=== PATIENT | male | born 1975 | race Caucasian/White ===

== ENCOUNTER 2018-10-30 21:39 | Emergency (ER) | payer SELFPAY ==
[~2018-10-30] VITALS: Ht 188 cm; Wt 92.1 kg
[2018-10-30 21:44] VITALS: Ht 188 cm; Wt 92.1 kg
[2018-10-30 23:29] VITALS: BP 116/98
== END 2018-10-30 23:29 | disposition home or self-care (01) ==
LOC: ED 21:39
DX: S61.412A Laceration without foreign body of left hand, initial encounter (principal); W26.8XXA Contact with other sharp object(s), not elsewhere classified, initial encounter; Y93.89 Activity, other specified; Y92.89 Other specified places as the place of occurrence of the external cause; Y99.8 Other external cause status
CPT/HCPCS: 90715; J2001